=== PATIENT | male | born 1995 ===

== ENCOUNTER 2023-10-09 08:40 | Outpatient (REF) | payer OTHER, SELFPAY ==
--- NOTE | ~2023-10-09 | US_ITS ---
EXAMINATION: US SCROTUM CLINICAL INFORMATION: Left testicular pain, no previous imaging. COMPARISON: None available. TECHNIQUE: A sonogram of the scrotum was performed assessing henning-scale appearance and color Doppler flow. Spectral Doppler analysis of the arterial and venous flow were performed in the testes bilaterally. FINDINGS: RIGHT: Right testicle measures 4.5 x 2.3 x 2.8 cm, volume 15.2 mL. No focal testicular parenchymal lesions are visualized. Spectral Doppler analysis of the arterial and venous flow is normal in the right testis. There is a 0.7 x 0.7 x 0.7 cm cyst in the right epididymal head. Right epididymal head is normal in size. No right hydrocele or varicocele is seen. Right epididymal Doppler flow is normal. LEFT: Left testicle measures 4.3 x 2.1 x 3.6 cm, volume 17.0 mL. No focal testicular parenchymal lesions are visualized. Spectral Doppler analysis of the arterial and venous flow is normal in the left testis. Left epididymal head is normal in size. No left hydrocele or varicocele is seen. Left epididymal Doppler flow is normal. US/US scrotum IMPRESSION: 0.7 cm cyst in the right epididymal head, likely simple. This study was presented today, 10/10/2023, for interpretation. Stat results provided at this time as requested by referring provider.
== END 2023-10-09 08:41 | disposition home or self-care (01) ==
LOC: HO.UMASIMG 08:40
PROVIDERS: Visit Provider Physician Assistant Medical
DX: N50.812 Left testicular pain (principal)
CPT/HCPCS: 76870